=== PATIENT | female | born 1975 | race Caucasian/White ===

== ENCOUNTER 2016-11-30 04:04 | Emergency (ER) | payer MEDICAID ==
[~2016-11-30] VITALS: Ht 160 cm; Wt 105.5 kg
[~2016-11-30 04:04] MED LIST: AMLO-147; AZIT250T94 PO; IBUP-1542 PO; [UNRECOGNIZED DRUG - CODE] PO
[2016-11-30 04:12] VITALS: Ht 160 cm; Wt 105.5 kg
[2016-11-30] MEDS ORDERED: HYDROmorphONE 1 MG/ML SYG IV STA (04:39)
[2016-11-30] MEDS ORDERED: SOD CHLORIDE 0.9% 1,000 ML IV STA (04:39)
[2016-11-30] MEDS ORDERED: ONDANSETRON 4 MG INJ IV STA (04:39)
[2016-11-30 05:11] LABS: BASOPHILS % 0.4 % (0.0-2.0); EOSINOPHILS # 0.2 10^3/ul (0.0-0.5); EOSINOPHILS % 2.2 % (0.0-7.0); HEMATOCRIT 36.5 % (37.0-47.0); HEMOGLOBIN 12.3 g/dl (12.0-16.0); LYMPHOCYTES # 2.4 10^3/ul (0.8-2.9); LYMPHOCYTES % 26.5 % (15.0-51.0); MEAN CORPUSCULAR HEMOGLOBIN 26.1 pg (29.0-33.0); MEAN CORPUSCULAR HGB CONC 33.9 g/dl (32.0-37.0); MEAN PLATELET VOLUME 7.8 fl (7.4-10.4); MONOCYTE # 0.7 10^3/ul (0.3-0.9); MONOCYTES % 7.4 % (0.0-11.0); NEUTROPHIL # 5.8 10^3/ul (1.6-7.5); NEUTROPHILS % 63.5 % (39.0-77.0); PLATELET COUNT 393 10^3/UL (140-440); RED BLOOD COUNT 4.73 10^6/ul (4.20-5.40); RED CELL DISTRIBUTION WIDTH 14.9 % (11.5-14.5); UNCORRECTED WBC 9.2 10^3/ul (4.8-10.8); WHITE BLOOD COUNT 9.2 10^3/ul (4.8-10.8)
[2016-11-30 05:13] LABS: CONDITION 1; LH ANALYZER COMMENTS 1
[2016-11-30 05:19] LABS: ALBUMIN 4.1 g/dl (3.3-4.9)
[2016-11-30 05:20] LABS: POTASSIUM 3.2 mmol/L (3.5-5.1)
[2016-11-30 05:22] LABS: ALBUMIN/GLOBULIN RATIO 1.02; BILIRUBIN,INDIRECT 0.2 mg/dl (0-1.1); BILIRUBIN,TOTAL 0.2 mg/dl (0.2-1.3); CREATININE 0.76 mg/dl (0.44-1.00); TOTAL PROTEIN 8.1 g/dl (6.1-8.1)
[2016-11-30 05:23] LABS: CALCIUM 8.8 mg/dl (8.4-10.2)
--- NOTE | 2016-11-30 05:52 | ERA ---
ER Documentation Chief Complaint Date/Time DATE: 11/30/16 TIME: 05:45 Chief Complaint abd pain,NV,diarrhea X1 HPI This is a 41-year-old female complains of 2-3 days of left upper and lower quadrant described as dull and constant with nausea vomiting has been nonbilious and nonbloody 2 as well as 2 episodes of nonbloody diarrhea. No back pain no hematuria no dysuria no fever no prior history of the same in the past no known history of diverticulitis. Nothing makes the pain worse or better , no radiation of pain ROS All systems reviewed and are negative except as per history of present illness. Medications Home Meds Active Scripts Ibuprofen* (Motrin*) 600 Mg Tab, 600 MG PO Q6, #20 TAB Prov:SHEREE RODRIGUEZ PA-C 07/25/15 Azithromycin* (Zithromax*) 250 Mg Tablet, 250 MG PO .ZPACK DIRECTED, #6 TAB TAKE 500 MG (2 TABS) THE FIRST DAY THEN 250 MG (1 TAB) DAYS 2-5 Prov:SHEREE RODRIGUEZ PA-C 07/25/15 Reported Medications Amlodipine Besylate* (Amlodipine Besylate*) 10 Mg Tablet, 1 DAILY 03/30/14 Labetalol Hcl* (Normodyne*) 300 Mg Tab, 2 TAB PO TID 03/30/14 Allergies Allergies: Coded Allergies: No Known Allergies (Verified Allergy, Mild, 03/29/14) PMhx/Soc History of Surgery: Yes (c/section x2) Anesthesia Reaction: No Hx Neurological Disorder: No Hx Respiratory Disorders: No Hx Cardiac Disorders: Yes (htn) Hx Psychiatric Problems: No Hx Miscellaneous Medical Probl: No Hx Alcohol Use: No Hx Substance Use: No Hx Tobacco Use: No Smoking Status: Never smoker FmHx Family History: No coronary disease Physical Exam Vitals Vital Signs Date Time Temp Pulse Resp B/P Pulse Ox O2 Delivery O2 Flow Rate FiO2 11/30/16 05:22 61 16 103/73 98 Room Air 11/30/16 04:53 68 16 107/80 98 Room Air 11/30/16 04:12 98.0 69 18 120/81 96 Physical Exam Const: Well-developed, well-nourished Head: Atraumatic, normocephalic Eyes: Normal Conjunctiva, PERRLA, EOMI, normal sclera, no nystagmus ENT: Normal External Ears, Nose and Mouth, moist mucus membranes. Neck: Full range of motion. No meningismus, no lymphadenopathy. Resp: Clear to auscultation bilaterally, no wheezing, rhonchi, rales Cardio: Regular rate and rhythm, no murmurs, S1 S2 present Abd: Soft, mild to moderate left upper and lower quadrant, non distended. Normal bowel sounds, no guarding or rebound, no pulsitile abdominal masses or bruits Skin: No petechiae or rashes, no ecchymosis , no maculopapular rash Back: No midline or flank tenderness Ext: No cyanosis, or edema, FROM x 4, normal inspection, neurovascularly intact x 4 Neur: Awake and alert, STR 5/5 x 4, sensation intact x 4, no focal findings, cerebellum intact Psych: Normal Mood and Affect Result Diagram: 11/30/1644611/30/16446 Results 24 hrs Laboratory Tests Test 11/30/16 04:47 Alanine Aminotransferase (ALT/SGPT) 31IU/L Albumin 4.1g/dl Albumin/Globulin Ratio 1.02 Alkaline Phosphatase 89IU/L Anion Gap 18 Aspartate Amino Transf (AST/SGOT) 25IU/L Basophils # 0.010^3/ul Basophils % 0.4% Blood Morphology Comment Blood Urea Nitrogen 11mg/dl Calcium Level 8.8mg/dl Carbon Dioxide Level 27mmol/L Chloride Level 100mmol/L Creatinine 0.76mg/dl Direct Bilirubin 0.00mg/dl Eosinophils # 0.210^3/ul Eosinophils % 2.2% Globulin 4.00g/dl Glucose Level 89mg/dl Hematocrit 36.5% Hemoglobin 12.3g/dl Indirect Bilirubin 0.2mg/dl Lipase 52U/L Lymphocytes # 2.410^3/ul Lymphocytes % 26.5% Mean Corpuscular Hemoglobin 26.1pg Mean Corpuscular Hemoglobin Concent 33.9g/dl Mean Corpuscular Volume 77.0fl Mean Platelet Volume 7.8fl Monocytes # 0.710^3/ul Monocytes % 7.4% Neutrophils # 5.810^3/ul Neutrophils % 63.5% Nucleated Red Blood Cells # 0.010^3/ul Nucleated Red Blood Cells % 0.0/100WBC Platelet Count 48450^3/UL Potassium Level 3.2mmol/L Red Blood Count 4.7310^6/ul Red Cell Distribution Width 14.9% Sodium Level 142mmol/L Total Bilirubin 0.2mg/dl Total Protein 8.1g/dl White Blood Count 9.210^3/ul Current Medications Medications (Trade) Dose Ordered Sig/Jacqueline Route PRN Reason Start Time Stop Time Status Last Admin Dose Admin Sodium Chloride (NS) 1,000 ml @ 1,000 mls/hr Q1H STAT IV 11/30/16 04:39 11/30/16 05:38 DC 11/30/16 04:51 Hydromorphone HCl (Dilaudid) 1 mg ONCE STAT IV 11/30/16 04:39 11/30/16 04:41 DC 11/30/16 04:51 Ondansetron HCl (Zofran Inj) 4 mg ONCE STAT IV 11/30/16 04:39 11/30/16 04:41 DC 11/30/16 04:51 Procedures/MDM Patient's labs are unremarkable. Patient's CAT scan is pending right now. Differential diagnosis is diverticulitis, enteritis/gastroenteritis, bad food exposure, bowel obstruction. CT scan is negative. Patient is to go home with pain control nausea medicine Cipro and Flagyl Departure Diagnosis: Primary Impression: Abdominal pain Qualified Code: R10.32 - Left lower quadrant pain Additional Impression: Vomiting and diarrhea Condition: Stable LUCIE PITTMAN DO Nov 30, 2016 05:52
[2016-11-30] MEDS ORDERED: ONDA4TAB14 PO (05:54)
[2016-11-30] MEDS ORDERED: CIPR500T4 PO (05:54)
[2016-11-30] MEDS ORDERED: HYDR-906 PO (05:54)
[2016-11-30] MEDS ORDERED: METR500T PO (05:54)
[2016-11-30] MEDS ORDERED: IOHEXOL 300MG/ML 150 ML BTL ONE (06:19)
[2016-11-30] MEDS ORDERED: SOD CHLORIDE 0.9% 100 ML ONE (06:19)
--- NOTE | 2016-11-30 07:14 | RADRPT ---
PROCEDURE: CT ABDOMEN/PELVIS WITH CONTRAST CLINICAL INDICATION: 41-year-old female with left lower quadrant pain. TECHNIQUE: The study was performed utilizing a GE Digital[employer]alkpeRe-vinyl VCT 64-slice CT scanner. Direct axia l sections were obtained through the abdomen and pelvis with the use of 100 cc of Omnipaque-300 griselda onic intravenous contrast material. Sagittal and coronal reformations were obtained. Automated expos ure control and iterative reconstruction techniques were utilized for this examination. The images were reviewed on a PACS workstation. CTD/vol = 22.5 mGy; Total Exam DLP = 1479.3 mGy-cm. COMPARISON: None. FINDINGS: The lung bases are unremarkable. There is no evidence for significant pleural effusion. The liver has a normal size and contour without focal areas of abnormal density or contrast enhancement. No in trahepatic nor extrahepatic biliary ductal dilatation is seen. The gallbladder demonstrates no wall thickening nor pericholecystic fluid. No biliary stones are evident. The pancreas is without areas o f abnormal attenuation or contrast enhancement. This spleen is identified and has a normal size wit hout abnormal density or contrast enhancement. The adrenal glands are unremarkable. The kidneys are functional bilaterally without abnormal density. No hydroureteronephrosis nor nephroureterolithiasis is evident. The urinary bladder contains urine. There is no evidence for bowel obstruction. There a re couple of small diverticula within the proximal sigmoid colon region without surrounding inflamma tory changes. The appendix is visualized and is without edema or surrounding inflammatory reaction. The uterus is unremarkable. Surgical clips are seen within the left adnexal region adjacent to the ovary. Small left ovarian cysts are seen with the largest measuring approximately 2.3 x 1.6 x 1.7 c m. There is no significant free fluid. The aortoiliac vessels are without aneurysmal dilatation. Th e osseous structures are intact. IMPRESSION: 1. Minimal sigmoid diverticulosis. 2. No CT evidence for appendicitis. 3. Surgical clips adjacent to the left ovary with small adjacent left ovarian cysts. .Kwabena Reeves MD, MD Date Time Electronically viewed and signed by .Kwabena Reeves MD, MD on 11/30/2016 07:13 .M/
[2016-11-30 08:22] VITALS: BP 116/76; PULSE 70; RESP 17; TEMP 98.3
== END 2016-11-30 08:23 | disposition home or self-care (01) ==
LOC: E/R 04:04
DX: R10.32 Left lower quadrant pain (principal); R40.2142 Coma scale, eyes open, spontaneous, at arrival to emergency department; R11.10 Vomiting, unspecified; R19.7 Diarrhea, unspecified; I10 Essential (primary) hypertension
CPT/HCPCS: 36415; 74177; 80053; 83690; 85025; 96374; 96375; J1170; J2405; J7030; Q9967; Z7502; Z7610

== ENCOUNTER 2017-06-02 21:06 | Emergency (ER) | payer MEDICAID ==
[~2017-06-02] VITALS: Ht 160 cm; Wt 104.5 kg
[~2017-06-02 21:06] MED LIST changes: +CIPR500T4 PO; +HYDR-906 PO; +METR500T PO; +ONDA4TAB14 PO
[2017-06-02 21:11] VITALS: Ht 160 cm; Wt 104.5 kg
--- NOTE | 2017-06-02 21:51 | ERD ---
ER Documentation Chief Complaint Date/Time DATE: 06/02/17 TIME: 21:49 Chief Complaint DIZZINESS X 2 HOURS HPI 41-year-old female presents here in emergency department for complaints of dizziness started 2 hours prior to arrival, is worse upon sudden movement. Patient denies any head injury. Patient denies any nausea or vomiting. Patient denies any chest pain palpitations dyspnea on exertion or dyspnea on lying down. Patient describes the dizziness as feeling of the room is spinning. ROS All systems reviewed and are negative except as per history of present illness. Medications Home Meds Active Scripts Hydrocodone/Acetaminophen ([place] 5-325 Tablet) 1 Each Tablet, 1 TAB PO Q6H Y for PAIN, #12 TAB Prov:BAKARI PITTMANS A. DO 11/30/16 Metronidazole* (Flagyl*) 500 Mg Tablet, 500 MG PO TID for 7 Days, TAB Prov:LEEANNA PITTMANSTOLOS A. DO 11/30/16 Ciprofloxacin Hcl* (Ciprofloxacin Hcl*) 500 Mg Tablet, 500 MG PO BID for 7 Days , TAB Prov:BAKARI PITTMANS A. DO 11/30/16 Ondansetron (Ondansetron Odt) 4 Mg Tab.rapdis, 4 MG PO Q6H Y for NAUSEA AND/OR VOMITING, #10 TAB Prov:BAKARI PITTMANS A. DO 11/30/16 Ibuprofen* (Motrin*) 600 Mg Tab, 600 MG PO Q6, #20 TAB Prov:SHEREE RODRIGUEZ PA-C 07/25/15 Azithromycin* (Zithromax*) 250 Mg Tablet, 250 MG PO .FREIDACK DIRECTED, #6 TAB TAKE 500 MG (2 TABS) THE FIRST DAY THEN 250 MG (1 TAB) DAYS 2-5 Prov:SHEREE RODRIGUEZ PA-C 07/25/15 Reported Medications Amlodipine Besylate* (Amlodipine Besylate*) 10 Mg Tablet, 1 DAILY 03/30/14 Labetalol Hcl* (Normodyne*) 300 Mg Tab, 2 TAB PO TID 03/30/14 Allergies Allergies: Coded Allergies: No Known Allergies (Verified Allergy, Mild, 03/29/14) PMhx/Soc History of Surgery: Yes (c/section x2) Anesthesia Reaction: No Hx Neurological Disorder: No Hx Respiratory Disorders: No Hx Cardiac Disorders: Yes (htn) Hx Psychiatric Problems: No Hx Miscellaneous Medical Probl: No Hx Alcohol Use: No Hx Substance Use: No Hx Tobacco Use: No Smoking Status: Never smoker FmHx Family History: No coronary disease, No diabetes, No other Physical Exam Vitals Vital Signs Date Time Temp Pulse Resp B/P Pulse Ox O2 Delivery O2 Flow Rate FiO2 06/02/17 21:11 97.4 63 18 139/96 97 Physical Exam GENERAL: The patient is well developed and appropriate for usual state of health, in no apparent distress. CHEST: Clear to auscultation bilaterally. There are no rales, wheezes or rhonchi. HEART: Regular rate and rhythm. No murmurs, clicks, rubs or gallops. No S3 or S4. ABDOMEN: Soft, nontender and nondistended. Good bowel sounds. No rebound or guarding. No gross peritonitis. No gross organomegaly or masses. No Mehta sign or McBurney point tenderness. BACK: No midline or flank tenderness. EXTREMITIES: Equal pulses bilaterally. There is no peripheral clubbing, cyanosis or edema. No focal swelling or erythema. Full range of motion. Grossly neurovascularly intact. NEURO: Alert and oriented. Cranial nerves 2-12 intact. Motor strength in all 4 extremities with 5/5 strength. Sensation grossly intact. Normal speech and gait. +Garland-Hallpike exam. SKIN: There is no apparent rash or petechia. The skin is warm and dry. HEMATOLOGIC AND LYMPHATIC: There is no evidence of excessive bruising or lymphedema. No gross cervical, axillary, or inguinal lymphadenopathy. Results 24 hrs Current Medications Medications (Trade) Dose Ordered Sig/Jacqueline Route PRN Reason Start Time Stop Time Status Last Admin Dose Admin Meclizine HCl (Antivert) 25 mg ONCE ONCE PO 06/02/17 22:00 06/02/17 22:01 DC 06/02/17 21:51 Meclizine was given here in emergency department, verbalized feeling much better afterwards. PROCEDURE: CT Brain without. CLINICAL INDICATION: Dizziness. TECHNIQUE: A CT of the brain was performed on multidetector high-resolution CT scanner utilizing axial sections from the skull base through the vertex without contrast. The scan was reviewed in soft tissue brain and high frequency resolution bone algorithm windows. Images were reviewed on a high- resolution PACS workstation. One or more the following does reduction techniques were utilized: Automated exposure control, adjustment of the mA/ or kV according to patient's size, or use of iterative reconstruction technique. The exam CTDI = 44.95 mGy and the DLP = 720.23 mGy-cm. COMPARISON: None available. FINDINGS: The ventricles and sulci are age-appropriate. There is no intracranial hemorrhage, mass effect or midline shift. No abnormal intra-axial or extra- axial fluid collections are seen. The maravilla/white matter differentiation is preserved. No acute skull abnormality is noted. The visualized paranasal sinuses are essentially clear. IMPRESSION: 1. No acute intracranial hemorrhage, transcortical infarction or mass effect. RPTAT: HFN .Sriram Fernández MD, MD Date Time Electronically viewed and signed by .Sriram Fernández MD, MD on 06/02/2017 22: 20 .N/ CC: SHELL CIFUENTES NP Procedures/MDM Medical Decision Making: Patient's symptoms is likely consistent with benign positional vertigo. Patient's symptoms completely improved after taking meclizine. No head injury. There is low suspicion for neurological emergencies at this time since patients neurologic exam is normal. Patient did not have any altered level consciousness, vomiting, changes in balance or memory and did not have any head injury. Patients CT scan of the head does not show any neurological emergencies at this time. Patient was given for meclizine, Zofran to follow her primary care doctor in 1- 2 days for reevaluation of symptoms. Patient was advised to return to emergency department for any worsening symptoms. Dispostion: Home. Stable Departure Diagnosis: Primary Impression: Benign positional vertigo Laterality: unspecified laterality Qualified Code: H81.10 - Benign positional vertigo, unspecified laterality Condition: Stable Patient Instructions: Benign Positional Vertigo SHELL CIFUENTES NP Jun 02, 2017 21:51
[2017-06-02] MEDS ORDERED: MECLIZINE 12.5 MG TAB PO ONE (22:00)
--- NOTE | 2017-06-02 22:21 | RADRPT ---
PROCEDURE: CT Brain without. CLINICAL INDICATION: Dizziness. TECHNIQUE: A CT of the brain was performed on multidetector high-resolution CT scanner utilizing a xial sections from the skull base through the vertex without contrast. The scan was reviewed in sof t tissue brain and high frequency resolution bone algorithm windows. Images were reviewed on a high -resolution PACS workstation. One or more the following does reduction techniques were utilized: Aut omated exposure control, adjustment of the mA/ or kV according to patient's size, or use of iterativ e reconstruction technique. The exam CTDI = 44.95 mGy and the DLP = 720.23 mGy-cm. COMPARISON: None available. FINDINGS: The ventricles and sulci are age-appropriate. There is no intracranial hemorrhage, mass effect or mi dline shift. No abnormal intra-axial or extra-axial fluid collections are seen. The maravilla/white theodora er differentiation is preserved. No acute skull abnormality is noted. The visualized paranasal sinus es are essentially clear. IMPRESSION: 1. No acute intracranial hemorrhage, transcortical infarction or mass effect. RPTAT: HFN .Sriram Fernández MD, MD Date Time Electronically viewed and signed by .Sriram Fernández MD, MD on 06/02/2017 22:20 .N/
[2017-06-02] MEDS ORDERED: MECL12.574 PO (22:38)
== END 2017-06-02 22:39 | disposition home or self-care (01) ==
LOC: FTE 21:06
DX: H81.10 Benign paroxysmal vertigo, unspecified ear (principal); I10 Essential (primary) hypertension
CPT/HCPCS: 70450; Z7502; Z7610

== ENCOUNTER 2018-02-22 11:36 | Emergency (ER) | END 2018-02-22 12:38 | disposition home or self-care (01) ==

== ENCOUNTER 2018-07-20 08:11 | Emergency (ER) | END 2018-07-20 09:51 | disposition home or self-care (01) ==

== ENCOUNTER 2018-10-07 09:38 | Emergency (ER) | END 2018-10-07 10:48 | disposition home or self-care (01) ==

== ENCOUNTER 2019-06-26 14:21 | Emergency (ER) | payer MEDICAID ==
[~2019-06-26] VITALS: Ht 162.6 cm; Wt 109.0 kg
[~2019-06-26 14:21] MED LIST changes: +ACET500C5 PO; +AMOX500C2 PO; +AZIT250T PO; -AZIT250T94 PO; +HYDR-4011 PO; -HYDR-906 PO; +MECL-77 PO; +MECL12.574 PO; +NAPR-985 PO
[2019-06-26 14:23] VITALS: Ht 162.6 cm; Wt 109.0 kg
[2019-06-26] MEDS ORDERED: ONDANSETRON (ODT) 4 MG TAB ODT STA (15:04)
[2019-06-26] MEDS ORDERED: MECLIZINE 12.5 MG TAB PO ONE (15:30)
[2019-06-26 15:51] VITALS: BP 134/85; PULSE 65; RESP 18
== END 2019-06-26 15:53 | disposition home or self-care (01) ==
LOC: FTE 14:21
DX: R42 Dizziness and giddiness (principal)
CPT/HCPCS: Z7502; Z7610; 99283